=== PATIENT | male | born 1990 | race Caucasian/White ===

== ENCOUNTER 2023-01-10 16:23 | Emergency (ER) | payer OTHER ==
[2023-01-10 16:33] VITALS: BP 160/104
--- NOTE | 2023-01-10 16:37 | ED Physician Documentation ---
PD HPI UPPER EXT INJURY - Stated complaint Stated Complaint: L HAND PX - Chief complaint Chief Complaint: Laceration - History obtained from History obtained from: Patient - History of Present Illness Location: Left, Finger (middle finger tip crushed by heavy object approx 100 lbs, with pain, swelling, and laceration.) Type of injury: Crush Where injury occurred: Work Timing - onset: Today Timing - details: Abrupt onset, Still present Worsened by: Palpating Associated symptoms: Swelling. No: Weakness, Numbness Similar symptoms before: Has not had sx before Recently seen: Clinic (went to [facility] and referred to ER.) Review of Systems Neurologic: denies: Focal weakness, Numbness PD PAST MEDICAL HISTORY - Past Medical History Cardiovascular: None Respiratory: None - Allergies Allergies/Adverse Reactions: Allergies Allergy/AdvReac Type Severity Reaction Status Date / Time No Known Drug Allergies Allergy Verified 01/10/23 16:31 PD ED PE NORMAL - Vitals Vital signs reviewed: Yes - General General: Alert and oriented X 3, No acute distress, Well developed/nourished - Derm Derm: Normal color, Warm and dry - Extremities Extremities: Other (Left middle fingertip with bruising and swelling on the palmar aspect in the small nonpressured subungual hematoma. Tender at the tip. Good flexion extension at the DIP joint. 1 cm laceration at the mid palmar fat pad with visible fatty tissue. No foreign bodies.) - Neuro Neuro: Alert and oriented X 3, No motor deficit, No sensory deficit Results - Vitals Vitals: Vital Signs - 24 hr 01/10/23 16:27 Temperature 35.3 C L Heart Rate 78 Respiratory 16 Rate Blood Pressure 160/104 H O2 Saturation 99 Oxygen O2 Source Room air - Rads (name of study) lefft fingertip Relevant Findings:: Prelim report reviewed, EMP independent interpretation of test (small nondisplaced tuft fracture tip of middle finger. ), See rad report Procedures - Laceration (location) left middle finger ti Length in cm: 1 Wound type: Linear, Into subcut fat, Clean Neurovascular status: Sensory intact, Motor intact, Vascular intact Anesthesia: Lidocaine 1% (digital block) Wound preparation: Irrigated copiously NS, Wound explored (minimal fatty tissue protruding due to swelling was trimmed.), To the base Skin layer closure: Nylon, Interrupted, Size #-0 - enter number (4), Sutures - enter # (3) Other: Patient tolerated well, No complications, Neurovascular intact, Dressing applied, Tetanus UTD PD Medical Decision Making - ED course Complexity details: reviewed results (tuft fracture nondisplaced. ), considered differential (Very small laceration in the fat pad. There is a nondisplaced tuft fracture. These are not really communicating enough to consider a true open fracture. We will clean and close the wound as a typical laceration.), d/w patient Departure - Departure Disposition: 01 Home, Self Care Clinical Impression: Closed fracture of tuft of distal phalanx of finger, Finger laceration Crush injury to finger Qualifiers: Encounter type: initial encounter Qualified Code(s): S67.10XA - Crushing injury of unspecified finger(s), initial encounter Condition: Stable Record reviewed to determine appropriate education?: Yes Instructions: ED Laceration Hand Follow-Up: [facility] [Provider Group] Comments: The x-ray does show a likely nondisplaced small fracture at the tip of the tuft of the finger. You do have a laceration in the pad of the finger but most hand specialist/orthopedist would not typically consider this a "open fracture" in the sense of needing surgical debridement etc. We did clean it out and closed the wound of course. At this point most of the pain improvement will come with decreasing of the swelling and bruising. There will still be sensitivity of the fingertip because of the tuft fracture for a couple of weeks up to 3 to 4 weeks. However function should be fairly useful once the sutured wound is healed up. It is okay to wash and shower. Clean off the wound twice a day with soap and water, or peroxide and water. Apply some antibiotic ointment to it to keep it moist. Also to watch for signs of infection such as purulence, redness or increasing pain. Return to your primary care or the ER at the specified time for suture removal. Suture removal 7 to 8 days. Ibuprofen 3 times daily if needed for pain. Add Tylenol if needed. Ice elevate and rest the finger often today and tomorrow to help swelling. Recheck if signs of infection.
[2023-01-10] MEDS ORDERED: LIDOCAINE 2% 10 ML MDV SUBQ ONE (16:52)
[2023-01-10] MEDS ORDERED: IBUPROFEN 800 MG TABLET PO STA (16:52)
[2023-01-10] MEDS ORDERED: lidocaine 1% 20 ML MDV ONE (17:12)
--- NOTE | 2023-01-10 17:12 | XRAY Report ---
PROCEDURE: Finger(s) LT INDICATIONS: crush injury left middle finger tip TECHNIQUE: AP hand, 2 views of the middle finger(s) acquired. COMPARISON: None. FINDINGS: Bones: There is a nondisplaced tuft fracture of the third distal phalanx. There is an extremely tiny displaced osseous fragment. The joints are in normal alignment. Soft tissues: No suspicious soft tissue calcifications or masses. No radiodense foreign bodies. IMPRESSION: Nondisplaced third distal phalanx tuft fracture. If there is injury to the nailbed, treated as an ope n fracture. Reviewed by: Mindy Tom MD on 01/10/2023 4:10 PM NALINI Approved by: Mindy Tom MD on 01/10/2023 4:10 PM NALINI Station ID: [id number]
[2023-01-10] MEDS ORDERED: lidocaine 1% 20 ML MDV SUBQ ONE (17:13)
== END 2023-01-10 17:53 | disposition home or self-care (01) ==
LOC: ED 16:23
DX: S62.633A Displaced fracture of distal phalanx of left middle finger, initial encounter for closed fracture (principal); X58.XXXA Exposure to other specified factors, initial encounter; Y99.0 Civilian activity done for income or pay
CPT/HCPCS: 12001; 73140; 99283; A9270